=== PATIENT | male | born 1990 | race Caucasian/White ===

== ENCOUNTER 2023-11-12 21:28 | Emergency (ER) | payer OTHER ==
[~2023-11-12] VITALS: Ht 165.1 cm; Wt 74.8 kg
[2023-11-12 21:56] VITALS: BP 118/70; PULSE 90; RESP 17; TEMP 98; O2SAT 96
[2023-11-13] MEDS ORDERED: KETOROLAC 30 MG/ML VIAL IM ONE (00:20)
[2023-11-13] MEDS ORDERED: CEPH-588 PO (00:22)
[2023-11-13] MEDS ORDERED: ACET-10509 PO (00:22)
[2023-11-13] MEDS ORDERED: IBUP-2213 PO (00:22)
[2023-11-13 00:46] VITALS: BP 118/70; PULSE 90; RESP 17; TEMP 98; O2SAT 96
== END 2023-11-13 00:46 | disposition home or self-care (01) ==
LOC: MED 21:28
DX: S52.022A Displaced fracture of olecranon process without intraarticular extension of left ulna, initial encounter for closed fracture (principal); Z79.899 Other long term (current) drug therapy; Z79.1 Long term (current) use of non-steroidal anti-inflammatories (NSAID); Z79.2 Long term (current) use of antibiotics; W01.198A Fall on same level from slipping, tripping and stumbling with subsequent striking against other object, initial encounter; Y92.89 Other specified places as the place of occurrence of the external cause; Y93.89 Activity, other specified; Y99.8 Other external cause status
CPT/HCPCS: 73080; 96372; 99283; J1885